=== PATIENT | female | born 1980 | race Caucasian/White ===

== ENCOUNTER 2021-01-25 06:40 | Emergency (ER) | payer OTHER ==
[~2021-01-25] VITALS: Ht 167.6 cm; Wt 81.6 kg
[~2021-01-25 06:40] MED LIST: CARI350T PO; CYAN500T17 PO; HYDR-5191 PO; IBUP-974 PO; [UNRECOGNIZED DRUG - CODE] PO; [UNRECOGNIZED DRUG - CODE] PO
[2021-01-25 06:44] VITALS: BP 145/100
--- NOTE | 2021-01-25 06:44 | NUR ---
to bed ambulatory
--- NOTE | 2021-01-25 07:03 | NUR ---
Dr. Snider examining patient.
[2021-01-25] MEDS ORDERED: ONDANSETRON 4 MG/2 ML VIAL IVP ONE (07:05)
[2021-01-25] MEDS ORDERED: NACL 0.9% 1,000 ML IV SCH (07:05)
[2021-01-25] MEDS ORDERED: KETOROLAC 30 MG/ML VIAL IVP ONE (07:05)
--- NOTE | 2021-01-25 07:07 | NUR ---
40 Y/O FEMALE CAME TO THE ED FOR ABDOMINAL PAIN. PT STATES THAT SHE HAVE 9/10 SHARP AND "TWINGY" ABDOMINAL PAIN THAT IS RADIATING TO LOWER ABDOMINAL AREA. PT DENIES ANY FEVER, CHILLS, NAUSEA AND VOMITTING. PT STATED THAT SHE TOOK NORCO, BUT WITHOUT PAIN IMPROVEMENT. PT IS A&OX4 AND AMBULATORY WITH EVEN AND STEADY GAIT. ALLERGIES: AZITHROMYCIN, CLINDAMYCIN (HIVES); PENICILLIN (REDNESS ALL OVER) PMH: HERNIA SURGERY
--- NOTE | 2021-01-25 07:13 | NUR ---
GIVEN REPORT TO CHICO MCCURDY FOR CONTINUITY OF CARE
[2021-01-25 07:25] LABS: BASOPHILS % (AUTO) 0.5 % (0.0-2.0); EOSINOPHILS # (AUTO) 0.1 K/uL (0-0.4); EOSINOPHILS % (AUTO) 0.7 % (0.0-4.0); HEMATOCRIT 42.7 % (36-48); HEMOGLOBIN 14.4 g/dL (12.0-16.0); LYMPHOCYTES # (AUTO) 1.1 K/uL (2.5-16.5); LYMPHOCYTES % (AUTO) 11.2 % (20.5-51.1); MEAN CORPUSCULAR HEMOGLOBIN 35 pg (27-31); MEAN CORPUSCULAR HGB CONC 34 g/dL (33-37); MEAN CORPUSCULAR VOLUME 104.3 fL (80-94); MONOCYTES # (AUTO) 0.7 K/uL (0.8-1.0); MONOCYTES % (AUTO) 7.3 % (1.7-9.3); NEUTROPHILS # (AUTO) 7.6 K/uL (1.8-7.7); NEUTROPHILS % (AUTO) 80.3 % (42.2-75.2); PLATELET COUNT (AUTO) 325 K/uL (140-450); RED CELL DISTRIBUTION WIDTH 13.8 % (11.6-13.7); WHITE BLOOD COUNT (AUTO) 9.4 K/uL (4.8-10.8)
[2021-01-25 07:51] LABS: BILIRUBIN,URINE 1+ (NEGATIVE); COLOR,URINE YELLOW (YELLOW); LEUKOCYTE ESTERASE ,URINE TRACE (NEGATIVE); NITRITE, URINE NEGATIVE (NEGATIVE); PH,URINE 5.5 (5.0-9.0); UGLUCOSE NEGATIVE (NEGATIVE)
[2021-01-25 07:56] LABS: ALBUMIN 4.5 g/dL (3.4-5.0); CARBON DIOXIDE 25.6 mmol/L (21-32); POTASSIUM 4.6 mmol/L (3.5-5.1); TOTAL BILIRUBIN 0.5 mg/dL (0.0-1.0)
[2021-01-25 07:56] LABS: APPEARANCE,URINE SLIGHTLY HAZY (CLEAR)
[2021-01-25 07:58] LABS: WBC,URINE 0-5 /HPF (0-5)
[2021-01-25 08:00] LABS: BLOOD, URINE 1+ (NEGATIVE); RBC,URINE 0-5 /HPF (0-5)
--- NOTE | 2021-01-25 08:00 | NUR ---
UNABLE TO GET IV ACCESS AFTER MULTIPLE ATTEMPTS, PER ERMD STATES IS OK WILL SWITCH TO GI COCKTAIL
[2021-01-25] MEDS ORDERED: LIDOCAINE VISCOUS 2% 20 ML UDC ONE (08:10)
[2021-01-25] MEDS ORDERED: DICYCLOMINE HCL LIQUID 10 MG/5 ML UDC ONE (08:11)
[2021-01-25] MEDS ORDERED: ALUMINUM HYD/MAG/SIMETHICONE 30 ML UDC ONE (08:11)
[2021-01-25] MEDS: DICYCLOMINE HCL LIQUID 20 MG, ALUMINUM HYD/MAG/SIMETHICONE 30 ML, LIDOCAINE VISCOUS 2% ... PO ONE ×3 (08:28)
--- NOTE | 2021-01-25 08:40 | NUR ---
PT ALERT AND AWAKE, BREATHING EVEN AND UNLABORED. NO DISTRESS NOTED, PT STATES SHE FEELS A LTITLE BIT BETTER BUT STILL PAIN. ERMD AWARE
[2021-01-25] MEDS ORDERED: ONDA8TAB87 PO (09:04)
[2021-01-25] MEDS ORDERED: OMEP40EC24 PO (09:04)
[2021-01-25 09:20] VITALS: BP 138/98
--- NOTE | 2021-01-25 09:20 | NUR ---
Patient discharged with v/s stable. Written and verbal after care instructions given and explained. Patient alert, oriented and verbalized understanding of instructions. Ambulatory with steady gait. All questions addressed prior to discharge. ID band removed. Patient advised to follow up with PMD. Rx of Ondansetron, Omperazole given. Patient educated on indication of medication including possible reaction and side effects. Opportunity to ask questions provided and answered.
== END 2021-01-25 09:20 | disposition home or self-care (01) ==
LOC: MED 06:40
DX: R10.13 Epigastric pain (principal); F17.200 Nicotine dependence, unspecified, uncomplicated; Z88.1 Allergy status to other antibiotic agents; Z88.8 Allergy status to other drugs, medicaments and biological substances; Z79.899 Other long term (current) drug therapy; Z98.890 Other specified postprocedural states
CPT/HCPCS: 36415; 80053; 81001; 81025; 83690; 85025; 99284

== ENCOUNTER 2023-02-17 06:44 | Emergency (ER) | payer OTHER ==
[~2023-02-17] VITALS: Ht 172.7 cm; Wt 84.4 kg
[~2023-02-17 06:44] MED LIST changes: +OMEP40EC24 PO; +ONDA8TAB87 PO
[2023-02-17 07:05] VITALS: BP 151/92
--- NOTE | 2023-02-17 07:11 | NUR ---
TO BED 4 FOLLOWING TRIAGE
[2023-02-17 07:48] LABS: BILIRUBIN,URINE 1+ (NEGATIVE); BLOOD, URINE NEGATIVE (NEGATIVE); COLOR,URINE YELLOW (YELLOW); LEUKOCYTE ESTERASE ,URINE NEGATIVE (NEGATIVE); NITRITE, URINE NEGATIVE (NEGATIVE); PH,URINE 5.5 (5.0-9.0); UGLUCOSE NEGATIVE (NEGATIVE)
[2023-02-17 07:56] LABS: APPEARANCE,URINE SLIGHTLY CLOUDY (CLEAR)
--- NOTE | 2023-02-17 08:13 | NUR ---
42 years old female walk in to er c/o left lower quadrant pain for 1 week with nausea vomiting worse today.
[2023-02-17] MEDS ORDERED: NACL 0.9% 1,000 ML IV SCH (08:20)
[2023-02-17] MEDS ORDERED: MORPHINE SULFATE 4 MG/ML SYR IVP ONE (08:20)
[2023-02-17] MEDS ORDERED: ONDANSETRON 4 MG/2 ML VIAL IVP ONE (08:20)
[2023-02-17 08:27] LABS: RBC,URINE 0-5 /HPF (0-5)
[2023-02-17 08:48] LABS: BASOPHILS % (AUTO) 0.5 % (0.0-2.0); EOSINOPHILS # (AUTO) 0.1 K/uL (0-0.4); EOSINOPHILS % (AUTO) 0.6 % (0.0-4.0); HEMATOCRIT 39.6 % (36-48); HEMOGLOBIN 13.6 g/dL (12.0-16.0); LYMPHOCYTES # (AUTO) 1.1 K/uL (2.5-16.5); LYMPHOCYTES % (AUTO) 13.2 % (20.5-51.1); MEAN CORPUSCULAR HEMOGLOBIN 34 pg (27-31); MEAN CORPUSCULAR HGB CONC 34 g/dL (33-37); MEAN CORPUSCULAR VOLUME 99.8 fL (80-94); MONOCYTES # (AUTO) 0.8 K/uL (0.8-1.0); MONOCYTES % (AUTO) 9.1 % (1.7-9.3); NEUTROPHILS # (AUTO) 6.7 K/uL (1.8-7.7); NEUTROPHILS % (AUTO) 76.6 % (42.2-75.2); PLATELET COUNT (AUTO) 261 K/uL (140-450); RED BLOOD CELL COUNT(AUTO) 3.97 MIL/uL (4.20-5.40); RED CELL DISTRIBUTION WIDTH 12.9 % (11.6-13.7); WHITE BLOOD COUNT (AUTO) 8.7 K/uL (4.8-10.8)
[2023-02-17 09:08] LABS: ALBUMIN 4.4 g/dL (3.4-5.0); ANION GAP 15.6 (8-16); CARBON DIOXIDE 27.8 mmol/L (21-32); CREATININE 0.8 mg/dL (0.6-1.3); POTASSIUM 4.4 mmol/L (3.5-5.1); TOTAL BILIRUBIN 0.5 mg/dL (0.0-1.0)
[2023-02-17] MEDS ORDERED: ONDA8TAB87 PO (10:56)
[2023-02-17 11:32] VITALS: BP 132/87
--- NOTE | 2023-02-17 11:37 | NUR ---
patient condition stable d/c home with instructions after care reviewed understood left er via self ambulatory with steady gait no pain 0/10.
== END 2023-02-17 11:37 | disposition home or self-care (01) ==
LOC: MED 06:44
DX: R10.32 Left lower quadrant pain (principal); R11.2 Nausea with vomiting, unspecified; R19.7 Diarrhea, unspecified; I10 Essential (primary) hypertension; F17.200 Nicotine dependence, unspecified, uncomplicated; Z98.890 Other specified postprocedural states; Z79.899 Other long term (current) drug therapy; Z79.1 Long term (current) use of non-steroidal anti-inflammatories (NSAID); Z79.2 Long term (current) use of antibiotics; Z88.1 Allergy status to other antibiotic agents
CPT/HCPCS: 36415; 74176; 80053; 81001; 83690; 85025; 96361; 96374; 96375; 99285; J2270; J2405; J7030

== ENCOUNTER 2023-03-06 08:55 | Emergency (ER) | payer OTHER ==
[~2023-03-06] VITALS: Ht 172.7 cm; Wt 84.4 kg
[2023-03-06 09:11] VITALS: BP 154/104
--- NOTE | 2023-03-06 09:15 | NUR ---
pt ambulated to bed 11 from [facility].
[2023-03-06] MEDS ORDERED: ONDANSETRON 4 MG ODT PO ONE (09:35)
[2023-03-06] MEDS ORDERED: KETOROLAC 60 MG/2 ML VIAL IM ONE (09:35)
--- NOTE | 2023-03-06 09:53 | NUR ---
Ultrasound at bedside.
[2023-03-06 10:21] LABS: BASOPHILS % (AUTO) 0.4 % (0.0-2.0); EOSINOPHILS % (AUTO) 0.5 % (0.0-4.0); HEMATOCRIT 39.7 % (36-48); HEMOGLOBIN 13.6 g/dL (12.0-16.0); LYMPHOCYTES # (AUTO) 0.8 K/uL (2.5-16.5); LYMPHOCYTES % (AUTO) 10.1 % (20.5-51.1); MEAN CORPUSCULAR HEMOGLOBIN 35 pg (27-31); MEAN CORPUSCULAR HGB CONC 34 g/dL (33-37); MONOCYTES # (AUTO) 0.8 K/uL (0.8-1.0); MONOCYTES % (AUTO) 9.2 % (1.7-9.3); NEUTROPHILS # (AUTO) 6.7 K/uL (1.8-7.7); NEUTROPHILS % (AUTO) 79.8 % (42.2-75.2); PLATELET COUNT (AUTO) 279 K/uL (140-450); RED BLOOD CELL COUNT(AUTO) 3.93 MIL/uL (4.20-5.40); RED CELL DISTRIBUTION WIDTH 13.4 % (11.6-13.7); WHITE BLOOD COUNT (AUTO) 8.3 K/uL (4.8-10.8)
[2023-03-06 10:31] LABS: ALBUMIN 4.1 g/dL (3.4-5.0); ANION GAP 13.8 (8-16); CARBON DIOXIDE 26.7 mmol/L (21-32); CREATININE 0.8 mg/dL (0.6-1.3); POTASSIUM 4.5 mmol/L (3.5-5.1); TOTAL BILIRUBIN 0.4 mg/dL (0.0-1.0)
--- NOTE | 2023-03-06 11:15 | NUR ---
MD AT BEDSIDE REVIEWING DIAGNOSTIC RESULTS WITH PT
[2023-03-06] MEDS ORDERED: oxyCODONE/APAP 5/325 MG 1 TAB TAB PO ONE (11:25)
[2023-03-06 11:39] VITALS: BP 150/80
--- NOTE | 2023-03-06 11:39 | NUR ---
Patient discharged with v/s stable. Written and verbal after care instructions given and explained. Patient verbalized understanding. Ambulatory with steady gait. All questions addressed prior to discharge. Advised to follow up with PMD.
== END 2023-03-06 11:39 | disposition home or self-care (01) ==
LOC: MED 08:55
DX: N83.202 Unspecified ovarian cyst, left side (principal); I10 Essential (primary) hypertension; Z88.1 Allergy status to other antibiotic agents; Z88.8 Allergy status to other drugs, medicaments and biological substances; Z79.899 Other long term (current) drug therapy
CPT/HCPCS: 36415; 76856; 80053; 85025; 96372; 99285; J1885; Q0092; Q0162